=== PATIENT | female | born 1950 | race Caucasian/White ===

== ENCOUNTER → 2023-05-01 | Outpatient (CLI) | payer MEDICARE, OTHER ==
--- NOTE | 2023-05-01 09:52 | Diagnostic Imaging Report ---
PROCEDURE: CT sinuses without contrast TECHNIQUE: Multiple contiguous axial images were obtained through the sinuses without the use of intravenous contrast. Coronal and sagittal reformations were then performed. Auto Exposure Controls were utilized during the CT exam to meet ALARA standards for radiation dose reduction. INDICATION: H53.2, double vision on right eye COMPARISON: None available FINDINGS: no intracranial midline shift or obstructive hydrocephalus within the [id number], though the entire brain is not included within the [id number]. No uncal herniation. The left ocular lens is absent. The globes otherwise appear unremarkable. Retrobulbar fat is unremarkable. Extraocular muscles appear symmetric and unremarkable. The muscles of mastication are unremarkable. The parapharyngeal fat is symmetric and well-maintained. Fossa of Rosenmuller are unremarkable. The visualized portions of the parotid glands appear unremarkable. No focal fluid collection. Minimal mucosal thickening within the maxillary sinuses. The lamina papyracea are intact. The remainder of the paranasal sinuses appear clear. No significant nasal septal deviation. Tiny leftward projecting nasal spur. The bilateral ostiomeatal complexes are patent. Mild iesha bullosa of the left middle turbinate. Mild degenerative changes of the temporomandibular joints without dislocation. No acute facial fracture. Degenerative changes within the partially visualized upper cervical spine. IMPRESSION: No acute abnormality. The left ocular lens is absent. Additional findings as described above. Should their remain concern for the orbits and double vision, an MRI with and without contrast using orbits protocol could be considered. Dictated by: Dictated on workstation # [id number]
== END ==
LOC: RAD 08:20
PROVIDERS: ATTEND Otolaryngology Otolaryngology/Facial Plastic Surgery
DX: H53.2 Diplopia (principal); R51.9 Headache, unspecified
CPT/HCPCS: 70486

== ENCOUNTER → 2023-05-01 | Outpatient (CLI) | payer MEDICARE, OTHER | LOC: RAD 08:21 | PROVIDERS: ATTEND Family Medicine | DX: H53.2 Diplopia (principal); Z53.9 Procedure and treatment not carried out, unspecified reason ==

== ENCOUNTER 2023-10-18 12:11 | Emergency (ER) | payer MEDICARE, OTHER ==
[~2023-10-18] VITALS: Ht 165 cm; Wt 80.4 kg
[2023-10-18 12:30] VITALS: BP 154/69
--- NOTE | 2023-10-18 12:42 | ED GU-Female ---
General Chief Complaint: - Reproductive Stated Complaint: URINARY FREQUENCY/BURNING Source: patient Exam Limitations: no limitations History of Present Illness Date Seen by Provider: Oct 18, 2023 Time Seen by Provider: 12:25 Initial Comments This is a 73-year-old female who is sent to the ER by her primary care physician due to resistant urinary tract infection that requires IM or IV antibiotics. Patient reports that she suffers from chronic urinary tract infections and over the past month she has been going to urgent care because she could not get into her primary care physician quickly. She has been on oral antibiotics but the most recent culture and sensitivity report from October 11 shows multidrug-re sistant Klebsiella pneumoniae that is sensitive to carbapenems, Zosyn, and 1 other IV antibiotic. Patient appears and feels okay otherwise. She is also currently seeing urology at [facility] for bladder issues and was scheduled for a cystoscopy yesterday but was told that she could not have this procedure done until her infection was controlled. They referred her to the emergency department at but the patient did not want to stay there to be seen in the ER. She came back home, talk to her PCP today, and was sent to our ER for further treatment. Allergies and Home Medications Patient Home Medication List Home Medication List Reviewed: Yes Review of Systems Review of Systems Constitutional: no symptoms reported, see HPI (All other systems negative except as documented in HPI.) Past Tshfqtq-[id number]-Laqdbt Hx Patient Social History Tobacco Use?: No Substance use?: No Alcohol Use?: No Physical Exam Vital Signs Vital Signs - First Documented 10/18/23 12:30 Temp 36.6 Pulse 77 Resp 16 B/P (MAP) 154/69 (97) Pulse Ox 96 O2 Delivery Room Air Capillary Refill : Height, Weight, BMI Height: '" Weight: lbs. oz. kg; BMI Method: General Appearance: WD/WN, no apparent distress HEENT: PERRL/EOMI, normal ENT inspection, TMs normal, pharynx normal Neck: non-tender, full range of motion, supple, normal inspection Cardiovascular: normal peripheral pulses, regular rate, rhythm, no edema, no gallop, no JVD, no murmur Respiratory: chest non-tender, lungs clear, normal breath sounds, no respiratory distress, no accessory muscle use, respiratory distress Gastrointestinal: normal bowel sounds, soft, no organomegaly, no pulsatile mass, abnormal bowel sounds, tenderness (Mild suprapubic tenderness to palpation) Genital/Rectal: normal genital exam, normal rectal exam, heme negative stool, normal rectal tone, normal vaginal exam Rectal: normal exam; No normal exam Pelvic: normal external exam, normal adnexa, no cerv. 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 as tested, no motor/sensory deficits, alert, normal mood/affect, oriented x 3 Skin: normal color, warm/dry, cyanosis, cool, diaphoresis, pallor Lymphatic: no adenopathy, axilla node tender (R), axilla node tender (L), inguinal node tender (R), inguinal node tender (L) Progress/Results/Core Measures Suspected Sepsis SIRS Temperature: Pulse: Respiratory Rate: Blood Pressure / Mean: Results/Orders Vital Signs/I&O 10/18/23 12:30 Temp 36.6 Pulse 77 Resp 16 B/P (MAP) 154/69 (97) Pulse Ox 96 O2 Delivery Room Air Capillary Refill : Progress Note : Time: 12:40 Progress Note Patient's outside records were reviewed by myself and nursing staff. Consult performed with outpatient pharmacy at [facility] who recommended ertapenem 1 g IM daily x 10 days. We will figure out where the patient can have these injections performed and help her set this up as an outpatient. Departure Impression Primary Impression: Urinary tract infection Disposition: 01 HOME, SELF-CARE Condition: Stable Departure-Patient Inst. Decision time for Depature: 12:41 Referrals: DENYS ACEVEDO MD (PCP/Family) Primary Care Physician Follow up as needed. Patient Instructions: Urinary Tract Infection, Adult (DC) Add. Discharge Instructions: You will receive an intramuscular injection every day for the next 14 days at [facility]. All discharge instructions reviewed with patient and/or family. Voiced understanding. Scripts Ertapenem Sodium (Ertapenem) 1 Gram Vial 1 GM IJ DAILY for 14 Days, #14 EA Prov: YAEL WILSON DO 10/18/23 YAEL WILSON DO Oct 18, 2023 12:42
[2023-10-18] MEDS ORDERED: ERTA1VIA4 IJ (12:50)
== END 2023-10-18 12:52 | disposition home or self-care (01) ==
LOC: EDUNIT# 12:11 → ER FS 12:12
DX: N39.0 Urinary tract infection, site not specified (principal)
CPT/HCPCS: 99281